=== PATIENT | male | born 1950 | race Caucasian/White ===

== ENCOUNTER 2020-12-27 14:34 | Emergency (ER) | payer MEDICARE, SELFPAY ==
[2020-12-27 14:45] VITALS: BP 143/74; PULSE 67; RESP 16; TEMP 37.1; O2SAT 99
--- NOTE | 2020-12-27 15:06 | ED.GENADULT ---
HPI - General Adult General Chief complaint: Medical Clearance Stated complaint: Covid Test Time Seen by Provider: 12/27/20 15:07 Source: patient and RN notes reviewed Mode of arrival: ambulatory Limitations: no limitations History of Present Illness HPI narrative: 70-year-old male presents with complaints of intermittent rhinorrhea, nasal congestion, and needing a PCR COVID-19 vaccine (for 01/11/2021) for the past 2-3 days. No treatment. Denies cough and chest congestion. No PCP. No exacerbating factors. No fevers, chills, and sweats. No nausea, vomiting, and abdominal pain. Denies chest pain, coughing up blood, facial pain, foreign body sensation, and rash. The patient reports he have not been diagnosed with COVID-19. The patient reports he received 2 Pfizer COVID-19 vaccines, last one 2 months ago. The patient reports he is not waiting for the results of a COVID-19 lab test. The patient reports he do not have weakness, myalgia, or fatigue. The patient reports he do not have a worsening cough. Denies chest pain. The patient reports he do not have any loss of smell or taste or diarrhea. Denies recent traveling. Denies concerns for COVID-19 or exposures. At this time, patient is not suspected of having COVID-19. Some parts of this dictation were generated by voice recognition software and may contain typographical and/or grammatical inaccuracies. Related Data Home Medications Medication Instructions Recorded Confirmed fluoxetine mg 12/27/20 tamsulosin mg PO 12/27/20 trazodone 12/27/20 Allergies Allergy/AdvReac Type Severity Reaction Status Date / Time Penicillins Allergy Unknown allergic Verified 08/16/17 21:20 1.PCN Allergy Unknown Uncoded 02/02/03 11:45 NKFA Allergy Unknown Uncoded 02/02/03 11:45 Review of Systems Review of Systems: Narrative: CONSTITUTIONAL: Denies fever, chills, sweats. EYES: Denies visual changes, redness, discharge. ENT: Complains of intermittent rhinorrhea, congestion. Denies sore throat, otalgia. CARDIOVASCULAR: Denies chest pain, palpitations, edema. RESPIRATORY: Denies wheezing, dyspnea, dry cough. GASTROINTESTINAL: Denies abdominal pain, nausea, vomiting, diarrhea. GENITOURINARY: Denies dysuria, hematuria, abnormal discharge. SKIN: Denies rash or itching. MUSCULOSKELETAL: Denies acute back pain, joint pain, myalgia. NEUROLOGIC: Denies numbness or focal weakness. PSYCHIATRIC: Denies anxiety or depression. All systems reviewed & are unremarkable except as noted in HPI and below. [facility] Past Medical History Medical History (Updated 01/03/21 @ 20:26 by JUS Burton) Arthritis Obstructive sleep apnea Surgical History Surgical History (Updated 01/03/21 @ 20:19 by JUS Burton) History of throat surgery Epiglottectomy Family History Family History (Updated 12/27/20 @ 17:47 by JUS Burton) Father Heart disease Mother Alive and well Social History Social History (Updated 01/03/21 @ 20:14 by JUS Burton) Smoking status: Former smoker Tobacco type: cigarettes Second hand tobacco smoke exposure: No Smoking end date: 08/12/70 Alcohol intake: former Substance use: never Living arrangements: with family Occupation/Education: occupation Gender identity (if verbalized by the patient): Male Sexual Orientation (if Verbalized by the Patient): Straight or Heterosexual Comments At time of signature, agree with the nurse past medical, surgical, social, and family history. There is no relevant family history pertinent to the presenting complaint. Exam Narrative: Exam Narrative: GENERAL: This is a well-nourished, well-developed patient, in no apparent distress. Talks in full sentences and ambulates with steady gait without dyspnea. HEAD: Normocephalic, atraumatic. EYES: PERRL. Sclera clear/white. Vision is grossly intact. NOSE: External nose normal with no obvious nasal discharge, nares
== END 2020-12-27 15:54 | disposition home or self-care (01) ==
PROVIDERS: Emergency Provider Nurse Practitioner Family
DX: B34.9 Viral infection, unspecified (principal); Z20.822 Contact with and (suspected) exposure to COVID-19; M19.90 Unspecified osteoarthritis, unspecified site; G47.33 Obstructive sleep apnea (adult) (pediatric); Z87.891 Personal history of nicotine dependence
CPT/HCPCS: 99211; G0463

== ENCOUNTER → 2021-01-09 02:22 | Outpatient (CLI) | payer MEDICARE, SELFPAY ==
[2021-01-09 17:04] LABS: SARS-CoV-2 RNA PCR Negative
== END ==
PROVIDERS: Visit Provider Nurse Practitioner Family
DX: R68.89 Other general symptoms and signs (principal); Z20.822 Contact with and (suspected) exposure to COVID-19
CPT/HCPCS: C9803; U0003; U0005

== ENCOUNTER 2021-03-19 10:23 | Observation (INO) | payer MEDICARE, SELFPAY ==
[2021-03-19] VITALS (42 sets, daily range): BP systolic 140–182; BP diastolic 63–87; PULSE 54–78; RESP 11–20; TEMP 36.6; O2SAT 97–100; BMI 23.7
--- NOTE | ~2021-03-19 | XR_ITS ---
EXAMINATION: XR chest 2V 03/19/2021 10:41 INDICATION: Chest pain PROCEDURE: 2 view chest COMPARISON: No prior studies for comparison. FINDINGS: The lungs are clear. The cardiomediastinal silhouette is within normal limits. There are no pleural effusions. There is no pneumothorax suspected. IMPRESSION: 1: NO ACUTE CARDIOPULMONARY DISEASE. Reviewed, dictated and finalized at location A.
--- NOTE | ~2021-03-19 | NM_ITS ---
EXAMINATION: NM lexis stress w perfusion DATE: 03/20/2021 15:25 INDICATION: Chest pain. TECHNIQUE: Rest images were obtained following intravenous administration of 10.9 mCi Tc99m tetrofosm in (Myoview). The patient was infused intravenously with Lexiscan (regadenoson). Then, 31.5 mCi Tc99m tetrofosmin (Myoview) was administered intravenously, and stress images were obtained. Data was elana nstructed into short axis and horizontal and vertical long axis SPECT images. Gated SPECT images were also obtained. COMPARISON: None. FINDINGS: There is a moderate-sized, moderate severity, partially reversible perfusion defect involvi ng mid to basal anterolateral and inferolateral segments of left ventricle, consistent with mixed isc hemia and infarct. There is no segmental wall motion abnormality. Left ventricular ejection fractio n measures 63%. IMPRESSION: 1. Moderate-sized area of moderate severity mixed ischemia and infarct involving mid to basal anterol ateral and inferolateral segments of left ventricle. 2. Normal left ventricular ejection fraction measuring 63%. Reviewed, dictated and finalized at location A. IMPRESSION: 1. Moderate-sized area of moderate severity mixed ischemia and infarct involvin g mid to basal anterolateral and inferolateral segments of left ventricle. 2. Normal left ventricular ejection fraction measuring 63%.
--- NOTE | 2021-03-19 10:25 | ECG_ITS ---
Measurements Intervals [place] Rate: 78 P: 60 TX: 158 QRS: -7 QRSD: 96 T: 54 QT: 373 QTc: 427 Interpretive Statements SINUS RHYTHM POSSIBLE LEFT ATRIAL ENLARGEMENT DELAYED PRECORDIAL R/S TRANSITION BORDERLINE ST ABNORMALITY- LATERAL LEADS BORDERLINE ECG Electronically Signed On 03-19-2021 16:27:57 CDT by Manuel Maldonado D.O.
[2021-03-19 10:56] LABS: Basophils Absolute Auto 0.1 K/mm3 (0.0-0.1); Basophils Percent Auto 0.9 % (0.2-1.2); Eosinophils Absolute Auto 0.2 K/mm3 (0-0.3); Eosinophils Percent Auto 4.1 % (0-4.4); Hematocrit 44.8 % (42.0-52.0); Hemoglobin 14.4 g/dL (14.0-18.0); Immature Granulocyte Absolute 0.01 K/mm3 (0.00-0.031); Immature Granulocyte Percent A 0.2 % (0-0.5); Lymphocytes Absolute Auto 0.89 K/mm3 (0.9-3.2); Lymphocytes Percent Auto 16.4 % (18.3-44.2); Mean Corpuscular HGB Conc 32.1 g/dl (32-36); Mean Corpuscular Hemoglobin 29.2 pg (26-34); Mean Corpuscular Volume 90.9 fl (80-100); Mean Platelet Volume 9.2 fl (7.4-10.4); Monocytes Absolute Auto 0.4 K/mm3 (0.1-0.6); Monocytes Percent Auto 7.7 % (2.6-8.5); Neutrophils Absolute Auto 3.8 K/mm3 (1.3-6.7); Neutrophils Percent Auto 70.7 % (45.5-73.1); Platelet Count Result 206 k/mm3 (150-375); Red Blood Count 4.93 M/mm3 (4.6-6.20); Red Cell Distribution Width 12.8 % (11.5-14.5); White Blood Count 5.4 K/mm3 (4.5-10.0)
[2021-03-19 11:06] LABS: Anion Gap 8 mmol/L (8-16); Blood Urea Nitrogen 23 mg/dL (9-20); Calcium 9.3 mg/dL (8.4-10.2); Carbon Dioxide 24 mmol/L (22-30); Chloride 106 mmol/L (98-107); Estimated Glomerular Filt Rate > 60; Glucose 133 mg/dL (65-110); INR 0.9; Potassium 4.3 mmol/L (3.4-5.0); Prothrombin Time 11.9 Seconds (11.1-14.7); Sodium 138 mmol/L (137-145)
[2021-03-19 11:07] LABS: Partial Thromboplastin Time 29.5 SECONDS (22.3-36.8)
[2021-03-19 11:17] LABS: Troponin I 0.017 ng/mL (0.000-0.034)
--- NOTE | 2021-03-19 11:32 | ED.CHESTPAIN ---
HPI - Chest Pain General Chief Complaint: Chest Pain Stated Complaint: chest pain Time Seen by Provider: 03/19/21 11:19 Source: patient Mode of arrival: ambulatory Limitations: no limitations History of Present Illness HPI narrative: This is a 71 year old male that presents to the ER for an episode of chest pain this morning. Reports he woke up with a tightness in his chest. This lasted for about an hour and a half and was relieved on its own. He did take a aspirin at home. Reports he recently moved to the area and does not have a primary doctor. He does think that he has had a stress test in the last 5 years which was negative. Denies fever, cough, shortness of breath, nausea, vomiting, or diaphoresis. Related Data Home Medications Medication Instructions Recorded Confirmed fluoxetine mg 12/27/20 tamsulosin mg PO 12/27/20 trazodone 12/27/20 Allergies Allergy/AdvReac Type Severity Reaction Status Date / Time Penicillins Allergy Unknown allergic Verified 08/16/17 21:20 1.PCN Allergy Unknown Uncoded 02/02/03 11:45 NKFA Allergy Unknown Uncoded 02/02/03 11:45 Review of Systems Review of Systems: CONSTITUTIONAL: Denies fever CARDIOVASCULAR: Denies current chest pain, palpitations, or edema. RESPIRATORY: Denies cough or dyspnea. GASTROINTESTINAL: Denies abdominal pain, nausea, vomiting All systems reviewed & are unremarkable except as noted in HPI and below PMFSH Past Medical History Medical History (Updated 03/19/21 @ 15:18 by Constance Gill PA-C) Arthritis Obstructive sleep apnea Surgical History Surgical History (Updated 01/03/21 @ 20:19 by JUS Burton) History of throat surgery Epiglottectomy Family History Family History (Updated 12/27/20 @ 17:47 by JUS Burton) Father Heart disease Mother Alive and well Social History Social History (Updated 03/19/21 @ 11:33 by Constance Gill PA-C) Smoking status: Former smoker Tobacco type: cigarettes Second hand tobacco smoke exposure: No Smoking end date: 08/12/70 Alcohol intake: current Substance use: current Substance use type: marijuana Gender identity (if verbalized by the patient): Male Exam Narrative: GENERAL: Elderly, well-nourished, and in no acute distress. HEAD: Normocephalic, atraumatic. EYES: EOMI. ENT: Mucous membranes moist. Oropharynx without tonsillar hypertrophy exudate or other lesions. NECK: Supple. No adenopathy or masses. CHEST: Clear to auscultation. No respiratory distress. No wheezes rales or rhonchi HEART: Regular rate and rhythm. No murmur heard. Normal peripheral pulses. EXTREMITIES: Normal range of motion. No edema. SKIN: Warm, dry, no rash. NEURO: No focal deficits. Alert and oriented x3. PSYCH: Normal mood and affect Course Consultations Consultation #1: Spoke with Dr. Maradiaga about patient and workup who will consult Date: 03/19/21 Time: 15:17 Consultation #2: Spoke with hospitalist about patient and workup who accepts admission Date: 03/19/21 Time: 15:20 Vital Signs Vital signs: Vital Signs Pulse Rate 74 03/19/21 11:25 Respiratory Rate 15 03/19/21 11:25 Pulse Oximetry 98 03/19/21 11:25 Temperature 97.8 F 03/19/21 11:28 Pulse Rate 62 03/19/21 14:42 Respiratory Rate 19 03/19/21 14:42 Blood Pressure 152/75 H 03/19/21 14:42 Pulse Oximetry 98 03/19/21 14:42 MDM - Chest Pain MDM Narrative Medical decision making narrative: Patient presents the emergency department for an episode of chest pain this morning. Reported as a substernal chest tightness. No recurrence of chest pain while in the ED. His vitals are stable. CBC and metabolic panel without concerning findings. Baseline. Troponins are not elevated, although they are trending up. He does have some ST depressions in the lateral leads on his EKG. Chest x-ray without acute cardiopulmonary abnormality. Spoke with Dr. Maradiaga about patient and workup who wi
[2021-03-19 14:17] LABS: Troponin I 0.024 ng/mL (0.000-0.034)
[2021-03-19 17:33] LABS: Troponin I 0.024 ng/mL (0.000-0.034)
--- NOTE | 2021-03-19 20:00 | PM.IMHP ---
H&P: HPI History of Present Illness Date/Time: 03/19/21 20:00 Chief Complaint: Chest pain. Narrative: This is a pleasant 71-year-old male with history of obstructive sleep apnea status post uvulopalatopharyngoplasty and benign prostatic hyperplasia presented to the emergency department earlier today via private vehicle from home for evaluation of chest pain. He awoke this morning he had discomfort in the midsternal chest region that he describes as pressure-like, radiating somewhat up into his arms. It was self-limiting and ceased after 5 to 10 minutes. He had no associated symptoms and specifically denies sweats, nausea, and vomiting. With further questioning he does endorse having similar episodes of chest tightness intermittently for quite some time, away self-limiting, which he has ignored up until now. These do not necessarily occur with exertion but will on occasion happen when he is walking longer distances and sometimes at night and early in the morning. Has no no symptoms at the time of my evaluation and in fact he really wanted to go home as he has a float trip tomorrow. He has no known history of cardiac disease and believes he had a negative stress test done about 5 years ago. The pain is not reducible and he denies that is similar to GERD or indigestion, which he will rarely experience. Review of Systems Review of Systems: 12 systems were reviewed with pertinent positives and negatives as per HPI. No fever, chills, or sweats. No recent cold or flu symptoms. He denies orthopnea, PND, and lower extremity edema. No palpitations or pleuritic pain. He denies syncope near syncope. Except as documented, all other systems were reviewed and are negative. [facility] Past Medical History Medical History (Updated 03/19/21 @ 20:27 by Grace Owen PA-C) Arthritis Benign prostatic hyperplasia Obstructive sleep apnea Status post uvulopalatopharyngoplasty. Surgical History Surgical History (Updated 03/19/21 @ 20:23 by Grace Owen PA-C) History of penile implant History of uvulopalatopharyngoplasty Status post excision of lipoma Family History Family History (Updated 03/19/21 @ 20:23 by Grace Owen PA-C) Father Heart disease Congestive heart failure Mother Alive and well Social History Social History (Updated 03/19/21 @ 20:25 by Grace Owen PA-C) Social History: The patient lives with his in [place]. He has 3 sons who are relatively healthy. Retired. Remote smoking history, quit in 1970. Drinks 1 to 2 alcoholic beverages most nights of the week. Occasional marijuana use. He designates his , and, as his surrogate decision maker. Code status: Full code. Meds Home Medications and Allergies Home Medications Medication Instructions Recorded Confirmed Type fluoxetine mg 12/27/20 History tamsulosin mg PO 12/27/20 History trazodone 12/27/20 History Allergies Allergy/AdvReac Type Severity Reaction Status Date / Time Penicillins Allergy Unknown allergic Verified 08/16/17 21:20 1.PCN Allergy Unknown Uncoded 02/02/03 11:45 NKFA Allergy Unknown Uncoded 02/02/03 11:45 Vital Signs Vital Signs - 24 hr 03/19/21 11:25 03/19/21 11:28 03/19/21 11:30 Temperature 97.8 F Pulse Rate 74 74 76 Respiratory Rate 15 20 20 Blood Pressure 148/65 H Pulse Oximetry 98 97 98 03/19/21 11:31 03/19/21 11:55 03/19/21 12:00 Temperature Pulse Rate 78 65 61 Respiratory Rate 19 14 16 Blood Pressure 148/65 H Pulse Oximetry 98 98 98 03/19/21 12:01 03/19/21 12:19 03/19/21 12:36 Temperature Pulse Rate 61 62 59 L Respiratory Rate 15 11 L Blood Pressure 140/63 Pulse Oximetry 98 99 03/19/21 13:08 03/19/21 13:25 03/19/21 13:44 Temperature Pulse Rate 60 65 62 Respiratory Rate 13 20 15 Blood Pressure 142/65 H Pulse Oximetry 98 99 03/19/21 13:45 03/19/21 14:00 03/19/21 14:15 Temperature Pulse Rate 62 55 L 57 L Respiratory Rate 16 11 L 12 B
[2021-03-19] MEDS: ENOXAPARIN 40 MG/0.4 ML SYRINGE SUB-Q (21:19)
--- NOTE | 2021-03-19 23:39 | ADMGEN ---
This patient, Jamal Raymundo [facility], was admitted to IMU Room 205-01. Patient/family oriented to hospital policies and general routines including ID bracelet, bed and alarms, visiting hours, pain management, procedures, bathroom and other care routines, personal items, smoking policy, room service/diet, and visiting hours. Information on how to activate the Rapid Response Team has been discussed. Patient/Family are encouraged to report perceived risks to care and to ask questions if they do not understand what they are told or what they should do. Report from Anna GALLAGHER approc [id number]
[2021-03-20] VITALS (10 sets, daily range): BP systolic 163–178; BP diastolic 64–77; PULSE 55–88; RESP 18–20; TEMP 36.1–36.6; O2SAT 97–100
--- NOTE | 2021-03-20 | ECHO_ITS ---
Patient Info Name: Jamal Searsmo Age: 71 years : 1950 Gender: Male Ht: 69 in Wt: 160 lbs BSA: 1.88 m2 HR: 58 bpm BP: 163 / 77 mmHg Heart Rhythm: Sinus Rhythm Technical Quality: Good Exam Date: 03/20/2021 12:23 PM Exam Location: [facility] Pulmonary Patient Status: Inpatient Admit Date: 03/19/2021 Staff Ordering Physician: Nina Okeefe PA-C Residential Pest Control Technician: Erin Rojas RDCS Attending Provider: Nina Okeefe PA-C Referring Physician: Maldonado DELACRUZ; Exam Type: CA echo doppler color flow Study Info Indications R07.9 - Chest pain, unspecified Complete two-dimensional, color flow and Doppler transthoracic echocardiogram is performed. Summary 1. Complete two-dimensional, color flow and Doppler transthoracic echocardiogram is performed. 2. Unable to estimate PA systolic pressure due to poor spectral resolution of tricuspid regurgitant jet velocity. 3. Left ventricular chamber dimension is normal. 4. Left ventricular systolic function is normal, estimated at 60-65%. 5. There is no increased left ventricular wall thickness. 6. The left ventricular diastolic function is normal. 7. Global longitudinal strain is mildly elevated at -15 %. 8. There is no aortic valve stenosis. 9. There is mild mitral valve regurgitation. 10. There is trace tricuspid valve regurgitation. Left Ventricle Left ventricular chamber dimension is normal. Left ventricular systolic function is normal, estimated at 60-65%. There is no increased left ventricular wall thickness. The left ventricular diastolic function is normal. Global longitudinal strain is mildly elevated at -15 %. Right Ventricle Right ventricular chamber dimension is normal. Right ventricular systolic function is normal. Left Atria Left atrial chamber dimension is normal. Right Atria Right atrial chamber dimension is normal. Aortic Valve The aortic valve is trileaflet. There is mild aortic valve sclerosis. There is no aortic valve stenosis. There is no aortic valve regurgitation. Pulmonic Valve The pulmonic valve is not well visualized. There is trace pulmonic regurgitation. Mitral Valve The mitral valve has thickened leaflets. There is mild mitral valve regurgitation. The mitral valve annulus is mildly calcified. Tricuspid Valve Unable to estimate PA systolic pressure due to poor spectral resolution of tricuspid regurgitant jet velocity. The tricuspid valve leaflets are normal. There is trace tricuspid valve regurgitation. Pericardium/Pleural The pericardium appears normal. There is no pericardial effusion. Inferior Vena Cava Normal inferior vena cava with >50% collapse upon inspiration consistent with normal right atrial pressure, 5 mmHg. Aorta The aortic root size at the sinus of Valsalva is normal. Left Ventricular Outflow Tract Name Value Normal LVOT 2D LVOT Diameter 2.2 cm LVOT Doppler LVOT Peak Gradient 3 mmHg LVOT Mean Gradient 2 mmHg LVOT VTI 20 cm LVOT VTI/AV VTI Ratio 1.0 L
[2021-03-20 05:26] LABS: Alanine Aminotransferase 22 U/L (4-50); Albumin Level 3.6 g/dL (3.5-5.1); Alkaline Phosphatase 65 U/L (38-126); Anion Gap 5 mmol/L (8-16); Aspartate Amino Transferase 26 U/L (17-59); Bilirubin,Total 0.4 mg/dL (0.2-1.3); Blood Urea Nitrogen 20 mg/dL (9-20); Calcium 9.3 mg/dL (8.4-10.2); Carbon Dioxide 28 mmol/L (22-30); Chloride 102 mmol/L (98-107); Cholesterol 173 mg/dL (0-200); Estimated CRCL calculation 65 ml/min; Estimated Glomerular Filt Rate > 60; Glucose 89 mg/dL (65-110); HDL Direct 55 mg/dL; Potassium 4.5 mmol/L (3.4-5.0); Sodium 135 mmol/L (137-145); Triglycerides 156 mg/dL (<150)
[2021-03-20 05:37] LABS: LDL Cholesterol Direct 77 mg/dL
--- NOTE | 2021-03-20 11:02 | EST_ITS ---
Patient Info Name: Jamal Searsmo Age: 71 years : 1950 Gender: Male Ht: 69 in Wt: 160 lbs BSA: 1.88 m2 HR: 53 bpm BP: 160 / 87 mmHg Heart Rhythm: Sinus Rhythm Exam Date: 03/20/2021 1:47 PM Exam Location: [facility] Stress Patient Status: Inpatient Admit Date: 03/19/2021 Staff Ordering Physician: Jaspreet Maradiaga MD Attending Provider: Nina Okeefe PA-C Exercise Technologist: Dulce Maria Fisher RDCS Exercise Physician: Jaspreet Maradiaga MD Exam Type: CA stress lexis w NM Study Info Indications R07.9 - Chest pain, unspecified A regadenoson stress test was performed. Summary 1. No abnormal ST/T wave changes with Lexiscan. 2. No chest discomfort with stress test. 3. Isolated stress-induced PVCs. 4. Please correlate with nuclear medicine images, reported separately. Protocol: Lexiscan Stress ECG Details Stage: REST Duration (min): 7 min : 2 sec HR (bpm): 62 SBP (mmHg): 160 DBP (mmHg): 87 Stage: REST Duration (min): 7 min : 16 sec HR (bpm): 59 SBP (mmHg): 160 DBP (mmHg): 87 Stage: STAGE 1 Duration (min): 1 min : 0 sec HR (bpm): 76 SBP (mmHg): 167 DBP (mmHg): 71 Stage: RECOVERY Duration (min): 1 min : 0 sec HR (bpm): 80 SBP (mmHg): 167 DBP (mmHg): 71 Stage: RECOVERY Duration (min): 2 min : 0 sec HR (bpm): 80 SBP (mmHg): 167 DBP (mmHg): 71 Stage: RECOVERY Duration (min): 3 min : 0 sec HR (bpm): 77 SBP (mmHg): 153 DBP (mmHg): 74 Stage: RECOVERY Duration (min): 3 min : 31 sec HR (bpm): 70 SBP (mmHg): 153 DBP (mmHg): 74 Rest HR: 59 bpm Peak HR: 85 bpm Rest Sys BP: 160 mmHg Peak Sys BP: 167 mmHg Max Pred HR: 148 bpm % Max Pred HR: 57 % Target HR: 126 bpm Max RPP: 14,195 bpm*mmHg BP Response: Normal blood pressure response Termination Reason: Completed protocol Cardiac Symptoms: None Total Time: 1 min : 0 sec Rest [place] BP: 87 mmHg Peak [place] BP: 71 mmHg Total Dose: 0.4 mg Resting ECG Normal sinus rhythm - normal ECG. Stress ECG No abnormal ST/T wave changes with Lexiscan. Arrhythmias Isolated stress-induced PVCs. Report Signatures
--- NOTE | 2021-03-20 14:37 | PM.CNCAR ---
Assessment and Plan Assessment and plan (1) Chest pain: Qualifiers: Chest pain type: unspecified Qualified Code(s): R07.9 - Chest pain, unspecified Code(s): R07.9 - Chest pain, unspecified Status: Acute Assessment and Plan: Chest pain considering given recurrence, description pressure-like sensation sometimes occurring with activity other times at rest. Recommend ischemic evaluation for further clarification as to etiology. Patient initially reluctant but finally agreed to obtain ischemic assessment prior to discharge. If stress test without infarct or ischemia, normal LV size and function without wall motion abnormalities and patient remains asymptomatic patient may status with the primary care physician in follow-up soon as an outpatient. Precise etiology remains unclear at this time but he has essentially ruled out for myocardial infarction without clear ischemic changes by EKG. Disposition per hospitalist service if stress test is completely unremarkable. Will review 2D echocardiogram prior to discharge. If no significant pathology to will new concerns noted disposition again at the discretion of the hospitalist service. All questions answered to the patient's satisfaction. He agreed with plan of care as outlined. Recommendations to follow as appropriate. We did discuss the possibility coronary angiography in associated risks and benefits he has significant abnormality such as ischemia, LV dysfunction and or wall motion abnormalities are noted. Lipids under good control LDL 77 without directed medical therapy. (2) HTN (hypertension), benign: Code(s): I10 - Essential (primary) hypertension Status: Acute Assessment and Plan: Patient clearly has hypertension untreated. This may possibly be an explanation for recurrent chest pain a given lack of medical care over the past many years this remains uncertain. I would recommend initiation of antihypertensive therapy defer to the hospitalist service prior to discharge given persistent BP elevation. Losartan 25 mg daily or amlodipine 5 mg daily may be a reasonable option but will defer to the primary service in this regard. History of Present Illness History of Present Illness Consult date/time: Date of service: 03/20/21 14:37 Cardiology consultation at the request of Grace Owen of the [facility] service for opinion regarding chest pain. Requesting physician: Grace Owen PA-C Consult reason: chest pain Reason For Visit: Chest Pain Narrative: Patient is a pleasant 71-year-old white male with a history of NOE who presented to the emergency depart with complaints of chest pain. Patient states he has experienced chest pain for several years off and on once every few weeks for 2-3 days described as a pressure-like sensation radiating to his arms last 5-10 minutes then resolved. He had 1 episode several weeks ago which lasted approximately 1 hour occurring at rest which will confirm sleep which was unusual. He states he otherwise feels well and has no other limitations. He denies exertional dyspnea, fatigue, diaphoresis, nausea, vomiting, palpitations, near-syncope or syncope. Patient has 1-2 alcohol drinks daily very remote tobacco use. No prior known history of CAD but has not follow the primary care physician many many years. He states he feels well and his chest pain resolved completely prior to arrival to emergency department. Initially was not interested in pursuing any other testing as he wanted to leave and join his friends on a float trip. Twelve lead EKG was unremarkable without clear ischemic changes, serial troponins negative although the slight increase but yet indeterminate from baseline. Review of Systems Review of Systems: All systems reviewed & are unremarkable except as noted in HPI and below Constitutional: Constitutional: Reports as per HPI, Reports no additional constitutional complaints, Denies fatigue, Denies
--- NOTE | 2021-03-20 16:10 | PM.DS ---
DS: Admitting Diagnosis Admitting Diagnosis Chest pain DS: Discharge Diagnosis Discharge Diagnosis (1) Chest pain: Qualifiers: Chest pain type: unspecified Qualified Code(s): R07.9 - Chest pain, unspecified Code(s): R07.9 - Chest pain, unspecified Status: Acute Assessment and Plan: The patient is a 71-year-old male with history of obstructive sleep apnea status post uvulopalatopharyngoplasty and benign prostatic hyperplasia presented to the emergency department via private vehicle from home for evaluation of pressure-like chest pain with radiating up into his arms. Initial vitals showed blood pressure 148/65, heart rate 74, respirtory rate 15, afebrile, oxygen 98% on room air. Initial labs showed normal CBC with differential, normal coag panel, slight elevation of BUN at 23, glucose 133, troponin was on the high side of normal at 0.017, 0.024, 0.024. EKG showed NSR HR 78 bpm, with borderline ST abnormality to lateral leads. Chest x-ray showed no acute cardiopulmonary abnormality. Patient was admitted overnight to be monitored on telemetry with a cardiac consultation. The regulatory agency director discussed with the patient the need for a Lexiscan stress test and echocardiogram. Patient's echocardiogram showed normal EF 60-65%, normal LV thickness, diastolic function is normal. Lexiscan stress test showed Moderate-sized area of moderate severity mixed ischemia and infarct involving mid to basal anterolateral and inferolateral segments of left ventricle. Normal left ventricular ejection fraction measuring 63%. I discussed with the regulatory agency director Dr. Maradiaga who recommended the patient to stay in the hospital and have a cardiac catheterization tomorrow morning. I discussed with the patient who would like to be discharged home to follow-up with occur outpatient cardiac catheterization. I explained to the patient that I am unsure how long it would take for him to be scheduled for cardiac catheterization outpatient, if he leaves he could have worsening chest pain and have to come back to the emergency room verses sudden . The patient understands the risks and would like to be discharged to follow-up as an outpatient. I discussed this with the regulatory agency director who states he can have an outpatient cardiac catheterization And follow-up in 1-2 weeks in their office for further evaluation monitoring. At this time he will be started on aspirin 81 mg daily, atorvastatin 40 mg daily, losartan 25 mg daily, and given nitroglycerin sublingual as needed for chest pain. Instructed to come back to the emergency room for any new or worsening chest pain or concerning symptoms. Told him if he does take the nitroglycerin he has to come by to the emergency room for further evaluation. Told him about avoiding any exertional activities and is discharge instructions. told him he should not go out of town on a float trip because of his abnormal Lexiscan stress test, due to his are still activity and possibility of having an acute FL. The patient understands the risks at this time. He is stable for discharge at this time. He needs a primary care provider to follow-up with. Blood pressure check recommended. The patient and his at bedside understand and agree with the plan all questions answered. (2) Elevated blood pressure reading: Code(s): R03.0 - Elevated blood-pressure reading, without diagnosis of hypertension Status: Acute DS: Summary Hospital Course Hospital Course: See above Status at Discharge Cognitive/behavioral status at discharge: Stable, improved. Time Spent with Patient Time attestation: Total time spent providing and/or coordinating discharge services: 42 Time spent: Greater than 30 minutes Exam Narrative: General: 71-year-old man sitting up in bed talking to his . Appears comfortable. In no acute distress. Skin: No jaundice or cyanosis. Good skin tu
== END 2021-03-20 17:00 | disposition home or self-care (01) ==
LOC: ANHED 15:18 → ANHIMU 21:30
PROVIDERS: Physician Assistant; Admitting Provider Student in an Organized Health Care Education/Training Program; Emergency Provider Emergency Medicine; Visit Provider Family Medicine
DX: R07.9 Chest pain, unspecified (principal); R03.0 Elevated blood-pressure reading, without diagnosis of hypertension; G47.33 Obstructive sleep apnea (adult) (pediatric); I34.0 Nonrheumatic mitral (valve) insufficiency; N40.0 Benign prostatic hyperplasia without lower urinary tract symptoms; Z87.891 Personal history of nicotine dependence; F12.90 Cannabis use, unspecified, uncomplicated
CPT/HCPCS: 36415; 71046; 78452; 80048; 80053; 80061; 83735; 84484; 85025; 85610; 85730; 93005; 93017; 93306; 96372; 99285; A9502; G0378; J1650; J2785

== ENCOUNTER 2021-09-06 08:30 | Outpatient (RCR) | payer MEDICARE, SELFPAY ==
[2021-06-13 11:50] VITALS: PULSE 54
== END 2021-09-06 19:30 | disposition home or self-care (01) ==
LOC: ANHCPREHAB 08:30
DX: Z95.1 Presence of aortocoronary bypass graft (principal)
CPT/HCPCS: 93798